=== PATIENT | male | born 1950 | race Asian ===

== ENCOUNTER → 2023-09-25 | Outpatient (REF) | payer OTHER, SELFPAY | LOC: DHSLP | PROVIDERS: ATTENDING PHYSICIAN Internal Medicine Critical Care Medicine; FAMILY PHYSICIAN Family Medicine | DX: G47.33 Obstructive sleep apnea (adult) (pediatric) (principal) | CPT/HCPCS: 95800 ==

== ENCOUNTER → 2024-06-25 15:47 | Outpatient (REF) | payer OTHER, SELFPAY | LOC: RCS 15:47 | PROVIDERS: ATTENDING PHYSICIAN Thoracic Surgery (Cardiothoracic Vascular Surgery); FAMILY PHYSICIAN Family Medicine | DX: Z98.890 Other specified postprocedural states (principal) | CPT/HCPCS: 71260; 93306; Q9967 ==

== ENCOUNTER 2025-01-18 06:32 | Day surgery (SDC) | payer MEDICARE, OTHER, SELFPAY | END 2025-01-18 09:04 | disposition home or self-care (01) | LOC: GI 06:32 | PROVIDERS: ATTENDING PHYSICIAN Internal Medicine | DX: Z12.11 Encounter for screening for malignant neoplasm of colon (principal); K64.8 Other hemorrhoids; D12.3 Benign neoplasm of transverse colon; K63.5 Polyp of colon; Z86.0100 Personal history of colon polyps, unspecified | CPT/HCPCS: 45385; 45380; 88305 ==